=== PATIENT | female | born 2000 | race Caucasian/White ===

== ENCOUNTER → 2021-03-08 | Outpatient (CLI) | payer BC, OTHER ==
[~2021-03-08] MED LIST: AUGMENTIN 875-1 EACH PO; DEPO-PROVE150 MG/11 IM; IBUPROFEN800 MG PO; KEFLEX CAP 500500 MG PO; PERCOCET 5/325 T1 EA PO; ZOFRAN ODT 4 MG4 MG SL
== END ==
LOC: RAD 17:24
DX: R10.32 Left lower quadrant pain (principal); R14.3 Flatulence
CPT/HCPCS: 74018